=== PATIENT | male | born 1935 | race Caucasian/White ===

== ENCOUNTER 2019-08-31 17:04 | Inpatient (IN) ==
[2019-08-31] MEDS ORDERED: SODIUM CHLORIDE 0.9% 1,000 ML IV STA (18:13)
[2019-08-31] MEDS ORDERED: KETOROLAC 30 MG/1 ML VIAL IV STA (18:23)
[2019-08-31] MEDS ORDERED: KETOROLAC 30 MG/1 ML VIAL ONE (18:24)
[2019-08-31 18:34] LABS: Basophils # 0.1 10*3/uL (0.0-0.2); Basophils % 0.5 % (0.0-0.8); Eosinophils # 0.1 10*3/uL (0.0-0.87); Eosinophils % 0.9 % (0.00-10.9); Hematocrit 44.9 VOL% (42.0-52.0); Immature Granulocytes % 0.3 %; Immature Granulocytes Absolute 0.03 #; Lymphocytes # 1.2 10*3/uL (1.4-4.0); Lymphocytes % 12.5 % (21.2-54.2); Mean Corpuscular HGB Conc 33.4 GM/DL (32-36); Mean Corpuscular Volume 96.8 FL (87-102); Mean Platelet Volume 9.6 FL (9.6-12.0); Monocytes % 6.6 % (1.7-12.7); Neutrophils % 79.2 % (38.7-73.9); Platelet Count 226 T/CUMM (130-400); Red Blood Count 4.64 MC/CUMM (3.8-5.5); White Blood Count 9.5 T/CUMM (4-12)
[2019-08-31] MEDS ORDERED: HYDROmorphone 2 MG/1 ML VIAL IV STA (18:35)
[2019-08-31 18:54] LABS: Bilirubin,Total 1.3 MG/DL (0.2-1.0); Calcium 9.4 MG/DL (8.5-10.1); Osmolality,Calculated 258.9 MOS/KG (273-304); Total Protein 7.3 G/DL (6.4-8.3)
[2019-09-01] MEDS: SODIUM CHLORIDE 0.9% 1,000 ML IV SCH ×3 (01:08→19:24)
[2019-09-01] MEDS: ONDANSETRON 4 MG/2 ML VIAL IV PRN ×3 (01:08→13:56)
[2019-09-01] MEDS: HYDROmorphone 2 MG/1 ML VIAL IV PRN ×2 (02:19→08:56)
[2019-09-01] MEDS ORDERED: ACETAMINOPHEN 325 MG TABLET PO PRN (08:58)
[2019-09-01] MEDS ORDERED: ONDANSETRON 4 MG/2 ML VIAL IV PRN (08:58)
[2019-09-01] MEDS ORDERED: PROMETHAZINE 25 MG/1 ML VIAL IM PRN (08:58)
[2019-09-01] MEDS: PANTOPRAZOLE 40 MG VIAL IV SCH (09:55)
[2019-09-01] MEDS ORDERED: hydrOXYzine HCL 25 MG TABLET PO ONE (13:14)
[2019-09-01] MEDS ORDERED: HydrOXYzine PAMOATE 25 MG CAPSULE PO ONE (13:15)
[2019-09-01] MEDS: carvediloL 12.5 MG TABLET PO SCH (17:35)
[2019-09-01] MEDS: HydrOXYzine PAMOATE 25 MG CAPSULE PO SCH (21:08)
[2019-09-02] MEDS: SODIUM CHLORIDE 0.9% 1,000 ML IV SCH ×2 (03:05→08:21)
[2019-09-02] MEDS: ENOXAPARIN 40 MG/0.4 ML SYRINGE SUBCUT SCH (04:08)
[2019-09-02 06:14] LABS: Basophils % 0.4 % (0.0-0.8); Eosinophils % 0.5 % (0.00-10.9); Hematocrit 39.4 VOL% (42.0-52.0); Hemoglobin 12.7 GM/DL (14.0-18.0); Immature Granulocytes % 0.3 %; Immature Granulocytes Absolute 0.02 #; Lymphocytes # 1.1 10*3/uL (1.4-4.0); Lymphocytes % 14.9 % (21.2-54.2); Mean Corpuscular HGB Conc 32.2 GM/DL (32-36); Mean Corpuscular Volume 99.2 FL (87-102); Mean Platelet Volume 9.7 FL (9.6-12.0); Monocytes % 10.8 % (1.7-12.7); Neutrophils % 73.1 % (38.7-73.9); Platelet Count 208 T/CUMM (130-400); Red Blood Count 3.97 MC/CUMM (3.8-5.5); Red Cell Distribution Width 13.1 % (9.3-17.3); White Blood Count 7.3 T/CUMM (4-12)
[2019-09-02 06:33] LABS: Calcium 8.7 MG/DL (8.5-10.1); Osmolality,Calculated 271.1 MOS/KG (273-304)
[2019-09-02 06:36] LABS: Albumin 3.1 G/DL (3.4-5.0); Bilirubin,Total 2.1 MG/DL (0.2-1.0); Calcium 8.5 MG/DL (8.5-10.1); Osmolality,Calculated 269.2 MOS/KG (273-304)
[2019-09-02] MEDS: PANTOPRAZOLE 40 MG VIAL IV SCH (08:22)
[2019-09-02] MEDS ORDERED: LIDOCAINE 1%/EPI INJ 20 ML VIAL ONE (09:03)
[2019-09-02] MEDS ORDERED: BUPIVACAINE MPF 0.25% 30 ML VIAL ONE (09:03)
[2019-09-02] MEDS ORDERED: ALBUMIN 5% 12.5 GM/250 ML VIAL IV ONE (09:30)
[2019-09-02] MEDS: carvediloL 12.5 MG TABLET PO SCH ×2 (09:36→16:57)
[2019-09-02] MEDS ORDERED: propofoL 200 MG/20 ML VIAL IV ONE (11:45)
[2019-09-02] MEDS ORDERED: SEVOFLURANE 1 UNIT/15 MINUTE INH ONE (11:45)
[2019-09-02] MEDS ORDERED: LIDOCAINE 2% 5 ML VIAL ONE (11:45)
[2019-09-02] MEDS ORDERED: fentaNYL 100 MCG/2 ML VIAL ONE (11:46)
[2019-09-02] MEDS ORDERED: GLYCOPYRROLATE 0.4 MG/2 ML VIAL ONE ×2 (11:46)
[2019-09-02] MEDS ORDERED: PHENYLEPHRINE 1 MG/10 ML SYRINGE IV ONE (11:46)
[2019-09-02] MEDS ORDERED: ETOMIDATE 40 MG/20 ML VIAL IV ONE (11:46)
[2019-09-02] MEDS ORDERED: PHENYLEPHRINE 10 MG/1 ML VIAL IV ONE (11:46)
[2019-09-02] MEDS ORDERED: EPINEPHrine 1 MG/ML VIAL ONE (11:46)
[2019-09-02] MEDS ORDERED: DEXAMETHASONE 4 MG/1 ML VIAL ONE (11:46)
[2019-09-02] MEDS ORDERED: ONDANSETRON 4 MG/2 ML VIAL ONE (11:46)
[2019-09-02] MEDS ORDERED: LACTATED RINGERS 1,000 ML IV ONE (11:47)
[2019-09-02] MEDS ORDERED: SODIUM CHLORIDE 0.9% 100 ML IV ONE (11:47)
[2019-09-02] MEDS ORDERED: NEOSTIGMINE 10 MG/10 ML VIAL ONE (11:47)
[2019-09-02] MEDS ORDERED: SODIUM CHLORIDE 0.9% 250 ML IV ONE (11:47)
[2019-09-02] MEDS ORDERED: ROCURONIUM 100 MG/10 ML VIAL IV ONE (11:47)
[2019-09-02] MEDS ORDERED: SUCCINYLCHOLINE 200 MG/10 ML VIAL ONE (11:47)
[2019-09-02] MEDS ORDERED: ONDANSETRON 4 MG/2 ML VIAL IV PRN (11:55)
[2019-09-02] MEDS: HYDROmorphone 2 MG/1 ML VIAL IV PRN ×3 (12:01→17:30)
[2019-09-02] MEDS ORDERED: LINACLOTIDE 145 MCG CAPSULE PO PRN (13:07)
[2019-09-02] MEDS: DUTASTERIDE 0.5 MG CAPSULE PO SCH ×2 (13:08→15:13)
[2019-09-02] MEDS: DEXT 5% NACL 0.45% KCL 20 MEQ 20 MEQ/1,000 ML BAG IV SCH ×2 (13:46→21:25)
[2019-09-02] MEDS: HydrOXYzine PAMOATE 25 MG CAPSULE PO SCH (21:23)
[2019-09-03 05:35] LABS: Basophils % 0.2 % (0.0-0.8); Hematocrit 33.9 VOL% (42.0-52.0); Hemoglobin 11.3 GM/DL (14.0-18.0); Immature Granulocytes % 0.6 %; Immature Granulocytes Absolute 0.06 #; Lymphocytes # 0.9 10*3/uL (1.4-4.0); Lymphocytes % 7.9 % (21.2-54.2); Mean Corpuscular HGB Conc 33.3 GM/DL (32-36); Mean Corpuscular Volume 98.3 FL (87-102); Mean Platelet Volume 9.8 FL (9.6-12.0); Monocytes % 8.5 % (1.7-12.7); Neutrophils % 82.8 % (38.7-73.9); Platelet Count 177 T/CUMM (130-400); Red Blood Count 3.45 MC/CUMM (3.8-5.5); Red Cell Distribution Width 12.9 % (9.3-17.3); White Blood Count 10.8 T/CUMM (4-12)
[2019-09-03] MEDS: ENOXAPARIN 40 MG/0.4 ML SYRINGE SUBCUT SCH (05:58)
[2019-09-03 06:01] LABS: Osmolality,Calculated 271.1 MOS/KG (273-304)
[2019-09-03] MEDS: DEXT 5% NACL 0.45% KCL 20 MEQ 20 MEQ/1,000 ML BAG IV SCH ×4 (07:59→21:53)
[2019-09-03] MEDS: ASPIRIN EC 81 MG TABLET PO SCH (08:19)
[2019-09-03] MEDS: PANTOPRAZOLE 40 MG VIAL IV SCH (08:19)
[2019-09-03] MEDS: DUTASTERIDE 0.5 MG CAPSULE PO SCH (08:19)
[2019-09-03] MEDS: carvediloL 12.5 MG TABLET PO SCH ×2 (09:45→18:12)
[2019-09-03] MEDS: TAMSULOSIN 0.4 MG CAPSULE PO SCH ×2 (12:57→20:46)
[2019-09-03] MEDS: HydrOXYzine PAMOATE 25 MG CAPSULE PO SCH (20:46)
[2019-09-04] MEDS: DEXT 5% NACL 0.45% KCL 20 MEQ 20 MEQ/1,000 ML BAG IV SCH ×2 (05:43→16:50)
[2019-09-04] MEDS: ENOXAPARIN 40 MG/0.4 ML SYRINGE SUBCUT SCH (05:43)
[2019-09-04 06:48] LABS: Basophils % 0.6 % (0.0-0.8); Eosinophils # 0.2 10*3/uL (0.0-0.87); Eosinophils % 2.6 % (0.00-10.9); Hematocrit 32.9 VOL% (42.0-52.0); Immature Granulocytes % 0.6 %; Immature Granulocytes Absolute 0.04 #; Lymphocytes # 0.8 10*3/uL (1.4-4.0); Lymphocytes % 11.4 % (21.2-54.2); Mean Corpuscular HGB Conc 33.4 GM/DL (32-36); Mean Corpuscular Volume 98.8 FL (87-102); Mean Platelet Volume 10.1 FL (9.6-12.0); Monocytes % 10.9 % (1.7-12.7); Neutrophils % 73.9 % (38.7-73.9); Platelet Count 156 T/CUMM (130-400); Red Blood Count 3.33 MC/CUMM (3.8-5.5); Red Cell Distribution Width 12.9 % (9.3-17.3); White Blood Count 7.3 T/CUMM (4-12)
[2019-09-04 07:15] LABS: Osmolality,Calculated 264.4 MOS/KG (273-304)
[2019-09-04] MEDS: PANTOPRAZOLE 40 MG VIAL IV SCH (10:01)
[2019-09-04] MEDS: DUTASTERIDE 0.5 MG CAPSULE PO SCH (10:02)
[2019-09-04] MEDS: ASPIRIN EC 81 MG TABLET PO SCH (10:02)
[2019-09-04] MEDS: carvediloL 12.5 MG TABLET PO SCH ×2 (10:02→16:06)
[2019-09-04] MEDS ORDERED: TAMSULOSIN 0.4 MG CAPSULE PO SCH ×2 (12:00→21:00)
[2019-09-04] MEDS: HydrOXYzine PAMOATE 25 MG CAPSULE PO SCH (20:35)
[2019-09-05] MEDS: DEXT 5% NACL 0.45% KCL 20 MEQ 20 MEQ/1,000 ML BAG IV SCH ×2 (00:01→08:12)
[2019-09-05] MEDS: ENOXAPARIN 40 MG/0.4 ML SYRINGE SUBCUT SCH (05:30)
[2019-09-05] MEDS: carvediloL 12.5 MG TABLET PO SCH (07:54)
[2019-09-05] MEDS: ASPIRIN EC 81 MG TABLET PO SCH (08:02)
[2019-09-05] MEDS: DUTASTERIDE 0.5 MG CAPSULE PO SCH (08:02)
[2019-09-05] MEDS: PANTOPRAZOLE 40 MG VIAL IV SCH (08:03)
[2019-09-05 12:08] VITALS: BP 109/42
== END 2019-09-05 14:29 | disposition home or self-care (01) | DRG 336 ==
LOC: N.ED 17:04 → N.3E 17:04
PROVIDERS: ADMIT Surgery; ATTEND Surgery

== ENCOUNTER 2022-05-06 07:05 | Observation (INO) ==
[2022-05-06 07:29] LABS: Basophils % 0.5 % (0.0-0.8); Eosinophils % 0.5 % (0.00-10.9); Hematocrit 38.2 VOL% (42.0-52.0); Immature Granulocytes % 0.2 %; Immature Granulocytes Absolute 0.01 #; Lymphocytes # 0.9 10*3/uL (1.4-4.0); Lymphocytes % 16.2 % (21.2-54.2); Mean Corpuscular Volume 100.5 FL (87-102); Mean Platelet Volume 10.3 FL (9.6-12.0); Monocytes # 0.6 10*3/uL (0.11-0.8); Neutrophils % 72.6 % (38.7-73.9); Platelet Count 159 T/CUMM (130-400); Red Cell Distribution Width 13.2 % (9.3-17.3); White Blood Count 5.5 T/CUMM (4-12)
[2022-05-06] MEDS ORDERED: FUROSEMIDE 40 MG/4 ML VIAL IV STA (07:51)
[2022-05-06 07:58] LABS: Albumin 3.6 G/DL (3.4-5.0); Bilirubin,Total 1.1 MG/DL (0.20-1.00); Calcium 8.9 MG/DL (8.5-10.1); Osmolality,Calculated 262.7 MOS/KG (273-304); Total Protein 6.2 G/DL (6.4-8.2)
[2022-05-06 09:32] LABS: Bilirubin,Urine Negative (Negative); Blood, Urine Small mg/dL (Negative); Glucose,Urine (UA) Negative (Negative); Ketones,Urine 5 mg/dL (Negative); Mucus,Urine Occasional /LPF (Occasional); Nitrite,Urine Positive (Negative); Protein,Urine Negative (Negative); RBC,Urine 1 /HPF (0-4); Sperm,Urine Occasional /HPF (Negative); Squamous Epithelial Cell,Urine Occasional /HPF (0-10); Urine Appearance CLEAR (Clear); Urine Color Amber (Yellow)
[2022-05-06] MEDS ORDERED: ONDANSETRON 4 MG/2 ML VIAL IV PRN (10:56)
[2022-05-06] MEDS ORDERED: ACETAMINOPHEN 325 MG TABLET PO PRN (10:56)
[2022-05-06] MEDS: PANTOPRAZOLE 40 MG TABLET PO SCH (12:34)
[2022-05-06] MEDS: DOCUSATE SODIUM 100 MG CAPSULE PO SCH ×2 (12:34→21:07)
[2022-05-06] MEDS ORDERED: SPIRONOLACTONE 25 MG TABLET PO ONE (12:57)
[2022-05-06] MEDS ORDERED: PRIMIDONE 50 MG TABLET PO PRN (12:58)
[2022-05-06] MEDS ORDERED: PHENAZOPYRIDINE 95 MG TABLET PO PRN (13:03)
[2022-05-06] MEDS: ENOXAPARIN 40 MG/0.4 ML SYRINGE SUBCUT SCH (14:22)
[2022-05-06] MEDS: cefTRIAXone 1,000 MG in SODIUM CHLORIDE 0.9% 100 ML IV SCH (14:26)
[2022-05-06] MEDS: carvediloL 6.25 MG TABLET PO SCH (17:24)
[2022-05-06] MEDS: FUROSEMIDE 40 MG/4 ML VIAL IV SCH (17:26)
[2022-05-06] MEDS ORDERED: TEMAZEPAM 15 MG CAPSULE PO SCH (21:00)
[2022-05-07 05:47] LABS: Basophils % 0.7 % (0.0-0.8); Eosinophils % 0.3 % (0.00-10.9); Hematocrit 40.8 VOL% (42.0-52.0); Hemoglobin 14.1 GM/DL (14.0-18.0); Immature Granulocytes % 0.3 %; Immature Granulocytes Absolute 0.02 #; Lymphocytes # 1.1 10*3/uL (1.4-4.0); Lymphocytes % 18.8 % (21.2-54.2); Mean Corpuscular HGB Conc 34.6 GM/DL (32-36); Mean Corpuscular Volume 98.1 FL (87-102); Mean Platelet Volume 10.5 FL (9.6-12.0); Monocytes # 0.7 10*3/uL (0.11-0.8); Monocytes % 11.6 % (1.7-12.7); Neutrophils % 68.3 % (38.7-73.9); Platelet Count 188 T/CUMM (130-400); Red Blood Count 4.16 MC/CUMM (3.8-5.5)
[2022-05-07 06:08] LABS: Calcium 9.2 MG/DL (8.5-10.1); Osmolality,Calculated 258.1 MOS/KG (273-304); Potassium 3.8 MMOL/L (3.5-5.1); Risk Ratio 2.57; VLDL Cholesterol 14.4 MG/DL
[2022-05-07] MEDS ORDERED: TAMSULOSIN 0.4 MG CAPSULE PO SCH (09:00)
[2022-05-07] MEDS ORDERED: SODIUM CHLORIDE 0.9% 1,000 ML IV SCH (09:00)
[2022-05-07] MEDS ORDERED: SPIRONOLACTONE 25 MG TABLET PO SCH (09:00)
[2022-05-07] MEDS ORDERED: ASPIRIN EC 81 MG TABLET PO SCH (09:00)
[2022-05-07] MEDS: FUROSEMIDE 40 MG/4 ML VIAL IV SCH (10:01)
[2022-05-07] MEDS: PANTOPRAZOLE 40 MG TABLET PO SCH (10:02)
[2022-05-07] MEDS: DOCUSATE SODIUM 100 MG CAPSULE PO SCH (10:03)
[2022-05-07] MEDS: carvediloL 6.25 MG TABLET PO SCH (11:23)
[2022-05-07] MEDS ORDERED: DAPAGLIFLOZIN 10 MG TABLET PO SCH (13:00)
[2022-05-07] MEDS: cefTRIAXone 1,000 MG in SODIUM CHLORIDE 0.9% 100 ML IV SCH (13:48)
[2022-05-07] MEDS: ENOXAPARIN 40 MG/0.4 ML SYRINGE SUBCUT SCH (13:50)
[2022-05-07] MEDS ORDERED: FUROSEMIDE 40 MG/4 ML VIAL IV ONE (15:36)
[2022-05-07] MEDS ORDERED: FUROSEMIDE 40 MG/4 ML VIAL IV SCH (16:00)
[2022-05-07 17:20] VITALS: BP 103/42
[2022-05-07] MEDS ORDERED: ROSUVASTATIN 20 MG TABLET PO SCH (21:00)
[2022-05-07] MEDS ORDERED: SACUBITRIL/VALSARTAN 49-51 MG TABLET PO SCH (21:00)
[2022-05-08] MEDS ORDERED: FUROSEMIDE 40 MG/4 ML VIAL IV SCH (09:00)
== END 2022-05-07 17:45 | disposition home or self-care (01) ==
LOC: N.ED 07:05 → N.EDINP 07:05 → N.TELEN 10:31
PROVIDERS: ADMIT Family Medicine; ATTEND Family Medicine

== ENCOUNTER 2022-06-02 16:01 | Inpatient (IN) ==
[2022-06-02] MEDS ORDERED: SODIUM CHLORIDE 0.9% 1,000 ML IV STA (16:31)
[2022-06-02] MEDS ORDERED: ONDANSETRON 4 MG/2 ML VIAL ONE ×2 (16:32→21:51)
[2022-06-02 17:14] LABS: Basophils % 0.2 % (0.0-0.8); Eosinophils % 0.2 % (0.00-10.9); Hematocrit 33.6 VOL% (42.0-52.0); Hemoglobin 11.6 GM/DL (14.0-18.0); Immature Granulocytes % 0.6 %; Immature Granulocytes Absolute 0.06 #; Lymphocytes # 0.9 10*3/uL (1.4-4.0); Lymphocytes % 8.5 % (21.2-54.2); Mean Corpuscular HGB Conc 34.5 GM/DL (32-36); Mean Corpuscular Volume 98.5 FL (87-102); Mean Platelet Volume 9.8 FL (9.6-12.0); Monocytes # 0.6 10*3/uL (0.11-0.8); Monocytes % 5.7 % (1.7-12.7); Neutrophils % 84.8 % (38.7-73.9); Platelet Count 133 T/CUMM (130-400); Red Blood Count 3.41 MC/CUMM (3.8-5.5); Red Cell Distribution Width 12.9 % (9.3-17.3); White Blood Count 10.1 T/CUMM (4-12)
[2022-06-02 17:23] LABS: INR 1.1; PT Patient Result 12.3 SECS (10.1-12.1); Partial Thromboplastin Time 28.2 SECS (23.7-32.9)
[2022-06-02 17:34] LABS: Alanine Aminotransferase 23 U/L (16-61); Albumin 3.2 G/DL (3.4-5.0); Alkaline Phosphatase 40 U/L (45-117); Amylase 105 U/L (25-115); Aspartate Amino Transferase 26 U/L (0-37); Blood Urea Nitrogen 20 MG/DL (7-18); Calcium 8.2 MG/DL (8.5-10.1); Carbon Dioxide 23 MMOL/L (21-32); Chloride 96 MMOL/L (98-107); Glucose 111 MG/DL (74-106); Osmolality,Calculated 261.9 MOS/KG (273-304); Potassium 4.5 MMOL/L (3.5-5.1); Sodium 129 MMOL/L (136-145); Total Protein 5.5 G/DL (6.4-8.2)
[2022-06-02 19:24] LABS: Hyaline Casts,Urine 5 /LPF (0-3); Mucus,Urine Occasional /LPF (Occasional); RBC,Urine 25-30 /HPF (0-4); Squamous Epithelial Cell,Urine Occasional /HPF (0-10)
[2022-06-02 19:25] LABS: Glucose,Urine (UA) Negative (Negative); Protein,Urine 30 mg/dL (Negative); Urine Appearance Clear (Clear); Urine Color Yellow (Yellow); Urine Specific Gravity 1.015 (1.001-1.035); Urine pH 6.5 (4.5-8.0)
[2022-06-02 19:26] LABS: Bilirubin,Urine Negative (Negative); Blood, Urine Small mg/dL (Negative); Ketones,Urine Trace mg/dL (Negative); Nitrite,Urine Positive (Negative)
[2022-06-02 19:33] LABS: Barbiturates Screen,Urine Positive (Negative); Benzodiazepines Screen,Urine Negative (Negative); Cannabinoid Screen,Urine Negative (Negative); Opiate Screen,Urine Negative (Negative); Phencyclidine Screen,Urine Negative (Negative)
[2022-06-02] MEDS ORDERED: HEPARIN 5,000 UNIT/1 ML VIAL IV ONE (21:00)
[2022-06-02] MEDS ORDERED: HEPARIN DRIP 25,000 UNITS/500 ML PREMIX IV SCH (21:30)
[2022-06-02] MEDS ORDERED: HYDROmorphone 1 MG/1 ML SYRINGE IV STA (21:50)
[2022-06-02] MEDS ORDERED: HYDROmorphone 1 MG/1 ML SYRINGE ONE (21:51)
[2022-06-02] MEDS ORDERED: ONDANSETRON 4 MG/2 ML VIAL IV STA (21:55)
[2022-06-03] MEDS ORDERED: ACETAMINOPHEN 325 MG TABLET PO PRN (00:15)
[2022-06-03] MEDS ORDERED: ONDANSETRON 4 MG/2 ML VIAL IV PRN (00:15)
[2022-06-03] MEDS ORDERED: MORPHINE 2 MG/1 ML SYRINGE IV PRN (00:15)
[2022-06-03] MEDS: SODIUM CHLORIDE 0.45% 1,000 ML IV SCH ×3 (01:31→18:05)
[2022-06-03] MEDS: DIAZEPAM 10 MG/2 ML SYRINGE IV SCH ×6 (01:32→23:13)
[2022-06-03] MEDS: PANTOPRAZOLE 40 MG VIAL IV SCH (09:09)
[2022-06-03] MEDS: HYDROmorphone 1 MG/1 ML SYRINGE IV PRN (09:12)
[2022-06-03] MEDS: ASPIRIN EC 81 MG TABLET PO SCH (09:17)
[2022-06-03] MEDS ORDERED: SODIUM CHLORIDE 0.9% 500 ML IV ONE (16:57)
[2022-06-03] MEDS: DONEPEZIL 5 MG TABLET PO SCH (22:02)
[2022-06-04] MEDS: SODIUM CHLORIDE 0.45% 1,000 ML IV SCH ×3 (01:10→18:05)
[2022-06-04] MEDS: DIAZEPAM 10 MG/2 ML SYRINGE IV SCH ×3 (04:11→13:11)
[2022-06-04] MEDS: HYDROmorphone 1 MG/1 ML SYRINGE IV PRN ×2 (04:50→19:19)
[2022-06-04 06:03] LABS: Basophils % 0.3 % (0.0-0.8); Hematocrit 34.9 VOL% (42.0-52.0); Hemoglobin 12.1 GM/DL (14.0-18.0); Immature Granulocytes % 0.3 %; Immature Granulocytes Absolute 0.01 #; Lymphocytes # 0.6 10*3/uL (1.4-4.0); Lymphocytes % 15.2 % (21.2-54.2); Mean Corpuscular HGB Conc 34.7 GM/DL (32-36); Mean Corpuscular Volume 100.3 FL (87-102); Mean Platelet Volume 10.3 FL (9.6-12.0); Monocytes # 0.8 10*3/uL (0.11-0.8); Neutrophils % 64.2 % (38.7-73.9); Platelet Count 125 T/CUMM (130-400); Red Blood Count 3.48 MC/CUMM (3.8-5.5); Red Cell Distribution Width 13.2 % (9.3-17.3)
[2022-06-04 06:30] LABS: Band Neutrophils 4 % (0-10); Lymphocytes 12 % (20-55); Nucleated Red Blood Cells 1 /100 WBC (0-5); Platelet Estimate Normal; Total Cells Counted 100
[2022-06-04] MEDS ORDERED: SODIUM CHLORIDE 0.9% 500 ML IV ONE (06:30)
[2022-06-04 06:34] LABS: Calcium 8.1 MG/DL (8.5-10.1); Osmolality,Calculated 266.9 MOS/KG (273-304); Potassium 4.7 MMOL/L (3.5-5.1)
[2022-06-04] MEDS: ASPIRIN EC 81 MG TABLET PO SCH (09:12)
[2022-06-04] MEDS: PANTOPRAZOLE 40 MG VIAL IV SCH (09:15)
[2022-06-04] MEDS: LORazepam 2 MG/1 ML VIAL IV PRN (12:43)
[2022-06-04] MEDS: DONEPEZIL 5 MG TABLET PO SCH (22:05)
[2022-06-05] MEDS: SODIUM CHLORIDE 0.45% 1,000 ML IV SCH ×3 (01:22→20:03)
[2022-06-05] MEDS: HYDROmorphone 1 MG/1 ML SYRINGE IV PRN ×2 (02:25→12:37)
[2022-06-05] MEDS ORDERED: SODIUM CHLORIDE 0.9% 500 ML IV STA (09:54)
[2022-06-05] MEDS: PANTOPRAZOLE 40 MG VIAL IV SCH (10:15)
[2022-06-05] MEDS: ASPIRIN EC 81 MG TABLET PO SCH (10:26)
[2022-06-05] MEDS: LORazepam 2 MG/1 ML VIAL IV PRN (21:27)
[2022-06-05] MEDS: DONEPEZIL 5 MG TABLET PO SCH (21:29)
[2022-06-06] MEDS: HYDROmorphone 1 MG/1 ML SYRINGE IV PRN ×2 (00:18→10:43)
[2022-06-06] MEDS: SODIUM CHLORIDE 0.45% 1,000 ML IV SCH ×3 (00:54→19:34)
[2022-06-06] MEDS: PANTOPRAZOLE 40 MG VIAL IV SCH (09:02)
[2022-06-06] MEDS: ASPIRIN EC 81 MG TABLET PO SCH (09:02)
[2022-06-06] MEDS: DONEPEZIL 5 MG TABLET PO SCH (22:11)
[2022-06-06 23:41] VITALS: BP 112/57
== END 2022-06-06 22:54 | disposition expired | DRG 299 ==
LOC: N.ED 16:01 → N.EDINP 21:28 → N.TELES 23:55
PROVIDERS: ADMIT Family Medicine; ATTEND Family Medicine